=== PATIENT | male | born 1940 | race Caucasian/White ===

== ENCOUNTER 2024-08-16 09:25 | Day surgery (SDC) | payer MEDICARE, SELFPAY ==
[2024-08-15 12:49] VITALS: BMI 23.8
[2024-08-16] VITALS (9 sets, daily range): BP systolic 109–152; BP diastolic 69–86; PULSE 64–91; RESP 10–22; TEMP 36.6–36.9; O2SAT 94–97; BMI 22.0
[2024-08-16] MEDS: SODIUM CHLORIDE 0.9% 500 ML 500 ML 20 ML IV (11:26)
[2024-08-16] MEDS: DiphenhydrAMINE INJ 50 MG/ML VIAL 12.5 MG IV (11:31)
[2024-08-16] MEDS: fentaNYL CIT INJ 50 mCg/ML AMP 2ML (ASD USE ONLY) IV (11:31)
[2024-08-16] MEDS: MIDAZOLAM INJ 1 MG/ML VIAL 2 ML (ASD USE ONLY) 2 MG IV (11:31)
== END 2024-08-16 12:24 | disposition home or self-care (01) ==
PROVIDERS: PCP Internal Medicine; Referring Provider Specialist; Visit Provider Specialist
PROC: 0DBE8ZX Excision of Large Intestine, Via Natural or Artificial Opening Endoscopic, Diagnostic (ICD-10-PCS; CPT 45380; principal; 2024-08-16 10:15)
DX: K64.9 Unspecified hemorrhoids (principal); Z86.0101 Personal history of adenomatous and serrated colon polyps; K57.30 Diverticulosis of large intestine without perforation or abscess without bleeding
CPT/HCPCS: 45378; J1200; J2250; J3010; J7040